=== PATIENT | male | born 1960 | race Caucasian/White ===

== ENCOUNTER → 2017-09-03 | Outpatient (CLI) | payer OTHER | END | disposition home or self-care (01) | LOC: RAD 12:24 | DX: M70.62 Trochanteric bursitis, left hip (principal); M17.11 Unilateral primary osteoarthritis, right knee; M72.2 Plantar fascial fibromatosis | CPT/HCPCS: 73502; 73562; 73630 ==

== ENCOUNTER → 2020-09-24 | Outpatient (CLI) | payer OTHER ==
--- NOTE | 2020-09-26 10:29 | KCIC ---
Five view cervical spine radiographs 09/24/2020 CLINICAL HISTORY: Neck pain. AP, lateral, bilateral oblique and AP open mouth odontoid digital radiographs of the cervical spine w ere obtained. Minimal lateral curvature of the cervical spine is seen convex to the left. There is st raightening of the normal cervical lordosis. Degenerative changes consisting of vertebral endplate sc lerosis and minimal to mild anterior and posterior vertebral body osteophyte formation are seen throu ghout the cervical disc spaces. Disc space narrowing is seen at C5-6 and C6-7. Degenerative changes a re seen involving the uncovertebral and facet joints throughout the mid and lower cervical disc space s. No prevertebral soft tissue swelling is seen. No fracture or subluxation of the cervical vertebrae is noted. Mild bilateral neural foraminal stenosis is seen at C5-6-7. IMPRESSION: Degenerative changes are seen involving cervical spine as discussed above. No acute osseo us abnormality is seen. Electronically signed by: Parviz Valera MD (09/26/2020 10:27 AM) [id number]
== END ==
LOC: KCIC 15:55
PROVIDERS: ATTEND Family Medicine
DX: M47.812 Spondylosis without myelopathy or radiculopathy, cervical region (principal); M48.02 Spinal stenosis, cervical region; M50.90 Cervical disc disorder, unspecified, unspecified cervical region; M25.78 Osteophyte, vertebrae
CPT/HCPCS: 72050

== ENCOUNTER → 2020-10-06 | Outpatient (CLI) | payer OTHER ==
--- NOTE | 2020-10-07 10:24 | SLEEP ---
DATE OF STUDY: 10/06/2020 ATTENDING PHYSICIAN: Dr. Morales Byrd. The patient is a 60-year-old who weighs 205 pounds with a BMI of 31.2. The patient's [place] score was 7. The patient underwent home sleep study performed at [facility]. Total recording time was 436 minutes. During the night study, the patient had 38 central apneas, 16 obstructive apneas, 29 mixed apneas and 123 hypopneas. The patient's AHI was 30.3 per hour. Nocturnal oximetry study revealed an average oxygen saturation of 92% with a lowest of 82%. 80 minutes were spent with oxygen saturation less than 90%. Mean heart rate was 69 beats per minute. IMPRESSION: 1. Severe obstructive sleep apnea at an AHI of 30.3 per hour. 2. Nocturnal hypoxia secondary to obstructive sleep apnea. RECOMMENDATIONS: 1. The patient would benefit from treatment of sleep apnea with CPAP. 2. Once the patient is optimally treated with CPAP, then follow up in 4-6 weeks to assess compliance and to document clinical improvement. 3. Weight loss is advised. 4. Avoid [employer] depressants. 5. Caution regarding driving until symptoms of sleep apnea resolve with CPAP. ERASMO DR: Justen TID: [id number] CC: Nupur BYRD MD
== END ==
LOC: RT 08:08
PROVIDERS: ATTEND Family Medicine
DX: G47.33 Obstructive sleep apnea (adult) (pediatric) (principal); R09.02 Hypoxemia
CPT/HCPCS: G0399